=== PATIENT | female | born 2000 | race African-American/Black ===

== ENCOUNTER 2020-10-20 15:14 | Emergency (ER) | payer MEDICAID, OTHER ==
[~2020-10-20] VITALS: Ht 154.9 cm; Wt 72.6 kg
[2020-10-20] MEDS ORDERED: ACETAMINOPHEN 325 MG TAB PO ONE ×2 (15:15→15:17)
[2020-10-20 16:36] VITALS: BP 119/73
[2020-10-20] MEDS ORDERED: IBUPROFEN 600 MG TAB PO ONE (17:00)
[2020-10-20] MEDS ORDERED: cefTRIAXone SOD 1,000 MG VL IM ONE (17:00)
== END 2020-10-20 18:08 | disposition home or self-care (01) ==
LOC: ER 15:14
DX: J03.80 Acute tonsillitis due to other specified organisms (principal)
CPT/HCPCS: 96372; 99283; J0696

== ENCOUNTER 2021-08-13 12:17 | Emergency (ER) | payer MEDICAID ==
[~2021-08-13] VITALS: Ht 152.4 cm; Wt 73.0 kg
[2021-08-13 12:29] VITALS: BP 140/79
[2021-08-13] MEDS ORDERED: PROM1SOL4 PO (13:06)
[2021-08-13] MEDS ORDERED: AZIT250T8 PO (13:06)
== END 2021-08-13 13:14 | disposition home or self-care (01) ==
LOC: ER 12:19
DX: J03.90 Acute tonsillitis, unspecified (principal)

== ENCOUNTER 2021-12-24 23:11 | Emergency (ER) | payer MEDICAID ==
[~2021-12-24] VITALS: Ht 154.9 cm; Wt 72.6 kg
[2021-12-24 23:11] VITALS: BP 132/90
[~2021-12-24 23:11] MED LIST: AZIT250T8 PO; PROM1SOL4 PO
== END 2021-12-25 01:35 | disposition left against medical advice (07) ==
LOC: ER 23:11
DX: O20.8 Other hemorrhage in early pregnancy (principal); Z3A.17 17 weeks gestation of pregnancy; Z53.21 Procedure and treatment not carried out due to patient leaving prior to being seen by health care provider
CPT/HCPCS: 76805